=== PATIENT | female | born 1960 | race African-American/Black ===

== ENCOUNTER 2021-10-28 07:20 | Day surgery (SDC) ==
[2021-10-23 12:15] LABS: Basophils # 0.1 10*3/uL (0.0-0.2); Basophils % 1.3 % (0.0-0.8); Eosinophils # 0.3 10*3/uL (0.0-0.87); Eosinophils % 5.5 % (0.00-10.9); Hematocrit 42.2 VOL% (35.7-47.0); Hemoglobin 13.2 GM/DL (12.0-16.0); Immature Granulocytes % 0.2 %; Immature Granulocytes Absolute 0.01 #; Lymphocytes # 1.8 10*3/uL (1.4-4.0); Lymphocytes % 34.4 % (21.3-54.2); Mean Corpuscular HGB Conc 31.3 GM/DL (32-36); Mean Corpuscular Volume 82.7 FL (87-102); Mean Platelet Volume 10.4 FL (9.6-12.0); Monocytes % 11.3 % (1.7-12.7); Neutrophils % 47.3 % (38.7-73.9); Platelet Count 264 T/CUMM (130-400); Red Cell Distribution Width 13.9 % (9.3-17.3); White Blood Count 5.2 T/CUMM (4-12)
[2021-10-23 12:30] LABS: Calcium 9.3 MG/DL (8.5-10.1); Potassium 4.3 MMOL/L (3.5-5.1)
[~2021-10-28 07:20] MED LIST: LACTATED RINGERS 1,000 ML IV SCH
[2021-10-28] MEDS ORDERED: FAMOTIDINE 20 MG TABLET PO ONE (07:47)
[2021-10-28] MEDS ORDERED: DIAZEPAM 5 MG TABLET PO ONE (07:47)
[2021-10-28] MEDS ORDERED: ACETAMINOPHEN 500 MG TABLET PO ONE (07:47)
[2021-10-28] MEDS ORDERED: GABAPENTIN 400 MG CAPSULE PO ONE (07:47)
[2021-10-28] MEDS ORDERED: fentaNYL 100 MCG/2 ML VIAL ONE ×2 (11:19→11:58)
[2021-10-28] MEDS ORDERED: BUPIVACAINE MPF 0.25% 30 ML VIAL ONE (11:19)
[2021-10-28] MEDS ORDERED: MIDAZOLAM 2 MG/2 ML VIAL ONE ×2 (11:19→11:58)
[2021-10-28] MEDS ORDERED: DEXAMETHASONE 4 MG/1 ML VIAL ONE (11:20)
[2021-10-28] MEDS ORDERED: LIDOCAINE 1% 5 ML VIAL ONE (11:20)
[2021-10-28] MEDS ORDERED: LIDOCAINE 2% 5 ML VIAL ONE (11:58)
[2021-10-28] MEDS ORDERED: SEVOFLURANE 1 UNIT/15 MINUTE INH ONE (11:58)
[2021-10-28] MEDS ORDERED: ROCURONIUM 50 MG/5 ML VIAL IV ONE (11:58)
[2021-10-28] MEDS ORDERED: propofoL 200 MG/20 ML VIAL IV ONE (11:58)
[2021-10-28] MEDS ORDERED: ONDANSETRON 4 MG/2 ML VIAL ONE (11:58)
[2021-10-28] MEDS ORDERED: ACETAMINOPHEN 325 MG TABLET PO PRN (12:34)
[2021-10-28] MEDS ORDERED: BISACODYL 5 MG TABLET PO PRN (12:34)
[2021-10-28] MEDS ORDERED: GLUCAGON 1 MG VIAL IM PRN (12:34)
[2021-10-28] MEDS ORDERED: HYDROmorphone 1 MG/1 ML SYRINGE IV PRN ×2 (12:34)
[2021-10-28] MEDS ORDERED: KETOROLAC 15 MG/1 ML VIAL IV PRN (12:34)
[2021-10-28] MEDS ORDERED: ALBUTEROL/IPRATROPIUM 3 ML NEB RESP TX PRN (12:34)
[2021-10-28] MEDS ORDERED: ONDANSETRON 4 MG/2 ML VIAL IV PRN (12:34)
[2021-10-28] MEDS ORDERED: DEXTROSE 10% 250 ML BAG IV PRN (12:47)
[2021-10-28] MEDS ORDERED: LACTATED RINGERS 1,000 ML IV ONE (14:14)
[2021-10-28] MEDS ORDERED: NEOSTIGMINE 10 MG/10 ML VIAL ONE (14:22)
[2021-10-28] MEDS ORDERED: LOPERAMIDE 2 MG CAPSULE PO PRN (16:10)
[2021-10-28] MEDS ORDERED: ALBUTEROL 2.5 MG/3 ML NEB RESP TX PRN ×2 (16:11→17:00)
[2021-10-28] MEDS: INSULIN LISPRO 100 UNIT/ML SUBCUT SCH ×2 (18:10→20:23)
[2021-10-28] MEDS ORDERED: INSULIN GLARGINE 100 UNIT/ML SUBCUT SCH (21:00)
[2021-10-29 06:06] LABS: Basophils % 0.1 % (0.0-0.8); Hemoglobin 12.7 GM/DL (12.0-16.0); Immature Granulocytes % 0.4 %; Immature Granulocytes Absolute 0.04 #; Lymphocytes % 9.4 % (21.3-54.2); Mean Corpuscular Volume 83.8 FL (87-102); Mean Platelet Volume 11.2 FL (9.6-12.0); Monocytes % 2.6 % (1.7-12.7); Neutrophils % 87.5 % (38.7-73.9); Platelet Count 233 T/CUMM (130-400); Red Blood Count 4.89 MC/CUMM (3.8-5.5); Red Cell Distribution Width 14.3 % (9.3-17.3); White Blood Count 10.9 T/CUMM (4-12)
[2021-10-29 06:23] LABS: Calcium 8.8 MG/DL (8.5-10.1); Osmolality,Calculated 294.5 MOS/KG (273-304); Potassium 4.3 MMOL/L (3.5-5.1)
[2021-10-29] MEDS ORDERED: hydroCHLOROthiazide 25 MG TABLET PO SCH (09:00)
[2021-10-29] MEDS ORDERED: GABAPENTIN 100 MG CAPSULE PO SCH (09:00)
[2021-10-29] MEDS ORDERED: FERROUS SULFATE 325 MG TABLET PO SCH (09:00)
[2021-10-29] MEDS ORDERED: ASPIRIN EC 81 MG TABLET PO SCH (09:00)
[2021-10-29] MEDS ORDERED: PANTOPRAZOLE 40 MG TABLET PO SCH (09:00)
[2021-10-29] MEDS ORDERED: DILTIAZEM CD 240 MG CAPSULE PO SCH (09:00)
[2021-10-29] MEDS: INSULIN LISPRO 100 UNIT/ML SUBCUT SCH ×2 (10:35→12:34)
[2021-10-29 12:42] VITALS: BP 152/92
== END 2021-10-29 13:11 | disposition home or self-care (01) ==
LOC: N.OR 07:20 → N.SDSINP 07:22 → INTOOBSV 12:34 → N.TELES 16:02 → N.OR 10-29 13:14
PROVIDERS: ATTEND Surgery